=== PATIENT | male | born 1970 | race American Indian/Alaskan Native ===

== ENCOUNTER 2016-08-28 15:09 | Emergency (ER) | payer MEDICAID ==
[2016-08-28 15:14] VITALS: BMI 28.0
[2016-08-28 15:15] VITALS: TEMP 98.7; O2SAT 99
--- NOTE | 2016-08-28 15:31 | ED PDOC ---
Arrival/HPI - General Chief Complaint: Abdominal Pain Time Seen by Provider: 08/28/16 15:25 Historian: Patient - History of Present Illness Narrative History of Present Illness (Text): 08/28/16 15:29 A 45 year old male, whose past medical history includes alcohol abuse, hypertension, diabetes, sarcoidosis and COPD, presents to the emergency department complaining of right lower abdominal pain for the past 2 days. Patient reports radiating pain towards his back. Patient notes urinary frequency but denies any fever, chills, nausea, vomiting, chest pain, shortness of breath or any other complaints. Patient reports an unintentional 15 lbs weight loss over the past 2 months. PMD: Frank Mauro Time/Duration: Other (2 days) Symptom Course: Unchanged Quality: Other Context: Home Past Medical History - Provider Review Nursing Documentation Reviewed: Yes - Tetanus Immunization Tetanus Immunization: Unknown - Cardiac Hx Cardiac Disorders: Yes Hx Hypertension: Yes - Pulmonary Hx Respiratory Disorders: Yes (SARCOIDOSIS) Hx Bronchitis: Yes Hx Pneumonia: Yes Other/Comment: H/O OF BIOPSY OF LUNG - Endocrine/Metabolic Hx Endocrine Disorders: Yes Hx Diabetes Mellitus Type 2: Yes - Hematological/Oncological Hx Blood Disorders: No - Musculoskeletal/Rheumatological Hx Musculoskeletal Disorders: No - Gastrointestinal Hx Gastrointestinal Disorders: Yes Hx Gastroesophageal Reflux: Yes - Psychiatric Hx Psychophysiologic Disorder: Yes (SMOKES CIGARETTES/ETOH -DRINKS EVERY OTHER DAY VODKA) Hx Substance Use: No - Surgical History Hx Orthopedic Surgery: Yes (right wrist) - Anesthesia Hx Anesthesia Reactions: No Hx Malignant Hyperthermia: No - Suicidal Assessment Feels Threatened In Home Enviroment: No Family/Social History - Physician Review Nursing Documentation Reviewed: Yes Family/Social History: No Known Family HX Smoking Status: Current Some Days Smoker Hx Alcohol Use: Yes (last drink was 08/27/2016) Hx Substance Use: No Hx Substance Use Treatment: No Allergies/Home Meds Allergies/Adverse Reactions: Allergies No Known Allergies Allergy (Verified 10/09/12 14:36) Home Medications: Home Meds Medication Instructions Recorded Confirmed Metformin HCl 1,000 mg PO DAILY 10/09/12 08/28/16 Albuterol HFA [Ventolin HFA 90 2 puff IH Q4 PRN 03/24/16 08/28/16 mcg/actuation (8 g)] Cyclobenzaprine [Flexeril] 5 mg PO DAILY 03/24/16 08/28/16 Enalapril Maleate [Vasotec] 10 mg PO DAILY 03/24/16 08/28/16 Omeprazole 40 mg PO DAILY 03/24/16 08/28/16 predniSONE [Prednisone] 10 mg PO BID 03/24/16 08/28/16 Physical Exam - Physical Exam Narrative Physical Exam (Text): - Review of Systems Constitutional: (+) Weight loss absent: Fatigue, Fevers, Chills Eyes: Normal ENT: Normal Respiratory: Normal absent: SOB, Cough, Sputum Cardiovascular: Normal absent: Chest pain, Palpitations, Syncope Gastrointestinal: (+) RLQ pain radiating to back absent: Diarrhea, Nausea, Vomiting Genitourinary: (+) Urinary frequency absent: Dysuria, Hematuria Musculoskeletal: Normal. absent: Arthralgias, Neck Pain Skin: Normal Neurological: Normal absent: Focal Weakness Endocrine: Normal Hemo/Lymphatic: Normal Psychiatric: Normal - Physical exam Patient appears age appropriate, speaking full sentences without difficulty - Systems Exam Head: Present: Atraumatic, Normocephalic Pupils: Present: PERRL Extraocular Muscles: Present: EOMI Conjunctiva: Present: Normal Mouth: Present: Moist Mucous Membranes Neck: Present: Normal Range of Motion. No: MIDLINE TENDERNESS, Paraspinal Tenderness Respiratory/Chest: Present: Clear to Auscultation, Good Air Exchange. No: Respiratory Distress, Accessory Muscle Use, Tachypneic Cardiovascular: Present: Regular Rate and Rhythm, Normal S1, S2, Peripheral Pulses Present. No: Murmurs Abdomen: Present: Normal Bowel Sounds, No: Tenderness, Peritoneal Signs, Rebound, Guarding, Distention Back: Present: Normal Inspection. No: Midline Tenderness, Paraspinal Tenderness Upper Extremity: Present: Normal Inspection. No: Cyanosis, Edema Lower Extremity: Present: Normal Inspection. No: Edema Neurological: Present: GCS=15, Speech Normal, cranial nerves II through XII fully intact with no cerebellar abnormality, neuro-sensory fully intact. No focal neurological deficits. Skin: Present: Warm, Dry, Normal Color. No: Rashes Lymphatic: Present: OX3, NI, NC Psychiatric: Present: Alert, Oriented x 3, Normal Insight, Normal Concentration Vital Signs Reviewed: Yes Vital Signs Temp Pulse Resp BP Pulse Ox 08/28/16 17:10 89 18 125/71 99 08/28/16 15:14 98.7 F 99 H 16 128/76 99 Temperature: Afebrile Blood Pressure: Normal Pulse: Tachycardic Respiratory Rate: Normal Appearance: Positive for: Well-Appearing, Non-Toxic, Comfortable Pain Distress: None Mental Status: Positive for: Alert and Oriented X 3 Finger Stick Blood Glucose: 153 Medical Decision Making ED Course and Treatment: 08/28/16 15:29 Impression: A 45 year old male with right lower abdominal pain radiating to back. Patient notes urinary frequency and weight loss. Physical exam unremarkable. Differential Diagnosis included but are not limited to: Pancreatitis vs. Renal colic Plan: -- Abdomen and pelvis CT -- Labs -- Blood and Urine culture -- Urinalysis -- IV fluids and Toradol -- Reassess and disposition Prior Visits: Notes and results from previous visits were reviewed. Patient discharged on 2015 after being worked up for abdominal pain localized in RUQ. Imaging showed gallbladder sludge. Patient was recommended outpatient colonoscopy and cholecystectomy. Progress Notes: I have discussed with the patient the importance of following up with PMD as outpatient concerning his weight loss, explained it could be due to cancer or other deadly diseases. Patient expressed understanding. 08/28/16 18:44 Ice Sculptor : Leonard Harris PROCEDURE: CT Abdomen and Pelvis without intravenous contrast FINDINGS: LOWER THORAX: Unremarkable. LIVER: Hepatomegaly is noted. GALLBLADDER AND BILE DUCTS: Gallstones are seen without evidence of acute cholecystitis P PANCREAS: Unremarkable. No gross lesion or ductal dilatation. SPLEEN: Spleen is mildly enlarged. ADRENALS: Unremarkable. No mass. KIDNEYS AND URETERS: Unremarkable. No hydronephrosis. No solid mass. VASCULATURE: Unremarkable. No aortic aneurysm. BOWEL: Unremarkable. No obstruction. No gross mural thickening. APPENDIX: Unremarkable. Normal appendix. PERITONEUM: Unremarkable. No free fluid. No free air. LYMPH NODES: Unremarkable. No enlarged lymph nodes. BLADDER: [id number] urinary bladder wall thickening. REPRODUCTIVE: Mildly enlarged prostate contains multiple foci of calcification. Foci of calcification are also seen in the bilateral vas deferens. BONES: No acute fracture. OTHER FINDINGS: None. IMPRESSION: No evidence of nephrolithiasis or hydronephrosis. Bqow-bo-nebknbot hepatomegaly and mild splenomegaly of uncertain etiology. Gallstones without evidence of acute cholecystitis. Wqjh-zq-iklzuqki urinary bladder wall thickening. Mildly enlarged prostate. On reevaluation, patient reports that he feels much better and would like to be discharged home. Patient's repeat abdominal exam is soft, nontender, non distended with positive bowel sounds in all 4 quadrants and no peritoneal signs. Patient is tolerating PO without any difficulty. Pt states he understands to return to the ER right away for new or worsening symptoms or for inability to f/u with PMD or specialist as instructed. Patient states that he fully agrees with and understands discharge instructions. States that he agrees with the plan and disposition. Verbalized and repeated discharge instructions and plan. I have given the patient opportunity to ask any additional questions. - Lab Interpretations Lab Results: 08/28/16 14:00 08/28/16 14:00 Lab Results 08/28/16 17:45: Urine Color Yellow, Urine Appearance Clear, Urine pH 6.5, Ur Specific [place] 1.015, Urine Protein 30 H, Urine Glucose (UA) Negative, Urine Ketones Negative, Urine Blood Trace-lysed H, Urine Nitrate Negative, Urine Bilirubin Negative, Urine Urobilinogen 1.0 H, Ur Leukocyte Esterase Negative, Urine RBC 1 - 3, Urine WBC 0 - 2, Urine Bacteria Few 08/28/16 15:22: POC Glucose (mg/dL) 153 H 08/28/16 14:00: WBC 3.4 L, RBC 3.44 L, Hgb 9.6 L, Hct 29.9 L, MCV 86.9, MCH 27.9 , MCHC 32.1, RDW 16.1 H, Plt Count 161, MPV 11.0, Gran % 76.4 H, Lymph % (Auto) 13.0 L, [place] % (Auto) 9.1 H, Eos % (Auto) 0.9 L, Baso % (Auto) 0.6, Gran # 2.59 , Lymph # 0.4 L, [place] # 0.3, Eos # 0.0, Baso # 0.02, PT 13.5 H, INR 1.25 H, APTT 28.5, Sodium 136, Potassium 3.6, Chloride 94 L, Carbon Dioxide 27, Anion Gap 19, BUN 16, Creatinine 1.0, Est GFR ( Amer) > 60, Est GFR (Non-Af Amer) > 60, Random Glucose 136 H, Calcium 9.3, Total Bilirubin 1.2, AST 191 H, ALT 98 H, Alkaline Phosphatase 73, Total Protein 9.1 H, Albumin 4.3, Globulin 4.7, Albumin/Globulin Ratio 0.9 L, Lipase 115 I have reviewed the lab results: Yes - RAD Interpretation Radiology Orders: 08/28/16 15:37 ABD & PELVIS W/O PO OR IV CONT [CT] Stat - Medication Orders Current Medication Orders: Discontinued Medications Sodium Chloride (Sodium Chloride 0.9%) 1,000 mls @ 1,000 mls/hr IV .Q1H STA Stop: 08/28/16 16:38 Last Admin: 08/28/16 16:08 Dose: 1,000 MLS/HR eMAR Start Stop Document 08/28/16 16:08 EQ (Rec: 08/28/16 16:08 EQ [email or web address]) Intravenous Solution Start Date 08/28/16 Start Time 16:08 Ketorolac Tromethamine (Toradol) 15 mg IVP STAT STA Stop: 08/28/16 15:40 Last Admin: 08/28/16 16:08 Dose: 15 MG IVP Administration Document 08/28/16 16:08 EQ (Rec: 08/28/16 16:08 EQ [email or web address]) Charges for Administration # of IVP Administrations 1 - Scribe Statement The provider has reviewed the documentation as recorded by the Talon Quinteros Provider Scribe Attestation: All medical record entries made by the Scribe were at my direction and personally dictated by me. I have reviewed the chart and agree that the record accurately reflects my personal performance of the history, physical exam, medical decision making, and the department course for this patient. I have also personally directed, reviewed, and agree with the discharge instructions and disposition. Disposition/Present on Arrival - Present on Arrival Any Indicators Present on Arrival: No History of DVT/PE: No History of Uncontrolled Diabetes: No Urinary Catheter: No History of Decub. Ulcer: No History Surgical Site Infection Following: None - Disposition Have Diagnosis and Disposition been Completed?: Yes Diagnosis: Abdominal pain Disposition: HOME/ ROUTINE Disposition Time: 18:48 Patient Plan: Discharge Patient Problems: Current Active Problems Problem Status Diagnosed Pancytopenia Acute Thickening of wall of gallbladder Acute Condition: GOOD Discharge Instructions (ExitCare): Abdominal Pain (ED), Urinary Tract Infection in Men (ED) Additional Instructions: PLEASE RETURN TO THE EMERGENCY DEPARTMENT FOR NEW OR WORSENING SYMPTOMS. RETURN RIGHT AWAY IF YOU CANNOT FOLLOW UP WITH YOUR PRIMARY CARE DOCTOR, CLINIC, OR SPECIALIST IN 1-2 DAYS. Prescriptions: Nitrofurantoin Macrocrystals [Macrobid] 100 mg PO BID #14 cap Referrals: Frank Mauro APN [Primary Care Provider] - Follow up with primary Alec David MD [Medical Doctor] - Follow up with primary Chavo Duggan MD [Staff Provider] - Follow up with primary
[2016-08-28] MEDS ORDERED: Sodium Chloride 0.9% 1,000 ML IV STA (15:39)
[2016-08-28 16:15] LABS: ADD MANUAL DIFF? NO
[2016-08-28 16:26] LABS: BASO # 0.02 K/mm3 (0.0-2.0); BASO % 0.6 % (0.0-3.0); EOS % 0.9 % (1.5-5.0); GRAN # 2.59 (1.4-6.5); GRAN % 76.4 % (50.0-68.0); HEMATOCRIT 29.9 % (42.0-52.0); LYMPH # 0.4 (1.2-3.4); MEAN CELL VOLUME 86.9 fL (80.0-105.0); MEAN CORPUSCULAR HEMOGLOBIN 27.9 pg (25.0-35.0); MEAN CORPUSCULAR HGB CONC 32.1 g/dl (31.0-37.0); MONO # 0.3 (0.1-0.6); MONO % 9.1 % (1.0-6.0); PLATELET COUNT 161 10^3/uL (120.0-450.0); RED CELL DISTRIBUTION WIDTH 16.1 % (11.5-14.5); WHITE BLOOD COUNT 3.4 10^3/ul (4.5-11.0)
[2016-08-28 16:44] LABS: ALB/GLOB RATIO 0.9 (1.1-1.8); ALKALINE PHOSPHATASE 73 U/L (38-133); ALT/SGPT 98 U/L (7-56); AST/SGOT 191 U/L (15-59); BILIRUBIN,TOTAL 1.2 mg/dL (0.2-1.3); BLOOD UREA NITROGEN 16 mg/dL (7-21); CALCIUM 9.3 mg/dL (8.4-10.5); CARBON DIOXIDE 27 mmol/L (21-33); CHLORIDE 94 mmol/L (98-107); GFR AFRICAN-AMERICAN > 60; GLUCOSE,RANDOM 136 mg/dL (70-110); LIPASE 115 U/L (23-300); POTASSIUM 3.6 mmol/L (3.6-5.0); SODIUM 136 mmol/L (132-148); TOTAL PROTEIN 9.1 g/dL (5.8-8.3)
[2016-08-28 17:11] LABS: INR 1.25 (0.93-1.08); PARTIAL THROMBOPLASTIN TIME 28.5 Seconds (23.7-30.8)
[2016-08-28 17:19] VITALS: RESP 18
[2016-08-28 18:17] LABS: PH,URINE 6.5 (4.7-8.0); URINE BILIRUBIN NEGATIVE (NEGATIVE); URINE BLOOD TRACE-LYSED (NEGATIVE); URINE GLUCOSE (UA) NEGATIVE (NEGATIVE); URINE KETONE NEGATIVE (NEGATIVE); URINE LEUKOCYTE ESTERASE NEGATIVE Leu/uL (NEGATIVE); URINE PROTEIN 30 mg/dL (<30 mg/dL)
[2016-08-28 18:27] LABS: URINE APPEARANCE CLEAR (CLEAR); URINE COLOR YELLOW (YELLOW)
--- NOTE | 2016-08-28 18:40 | CT ---
PROCEDURE: CT Abdomen and Pelvis without intravenous contrast HISTORY: Renal colic COMPARISON: Comparison is made to the previous ultrasound dated 03/24/2016 TECHNIQUE: Axial and reformatted coronal and sagittal CT images of the abdomen and pelvis were obtained without IV or oral contrast administration.. Contrast Dose: 0 Radiation dose: Total exam DLP = 517.02 mGy-cm. This CT exam was performed using one or more of the following dose reduction techniques: Automated exposure control, adjustment of the mA and/or kV according to patient size, and/or use of iterative reconstruction technique. FINDINGS: LOWER THORAX: Unremarkable. LIVER: Hepatomegaly is noted. GALLBLADDER AND BILE DUCTS: Gallstones are seen without evidence of acute cholecystitis P PANCREAS: Unremarkable. No gross lesion or ductal dilatation. SPLEEN: Spleen is mildly enlarged. ADRENALS: Unremarkable. No mass. KIDNEYS AND URETERS: Unremarkable. No hydronephrosis. No solid mass. VASCULATURE: Unremarkable. No aortic aneurysm. BOWEL: Unremarkable. No obstruction. No gross mural thickening. APPENDIX: Unremarkable. Normal appendix. PERITONEUM: Unremarkable. No free fluid. No free air. LYMPH NODES: Unremarkable. No enlarged lymph nodes. BLADDER: Oepf-zd-losultqg urinary bladder wall thickening. REPRODUCTIVE: Mildly enlarged prostate contains multiple foci of calcification. Foci of calcification are also seen in the bilateral vas deferens. BONES: No acute fracture. OTHER FINDINGS: None. IMPRESSION: No evidence of nephrolithiasis or hydronephrosis. Tsiu-we-ukdrfrxq hepatomegaly and mild splenomegaly of uncertain etiology. Gallstones without evidence of acute cholecystitis. Spyy-bn-bysfphlu urinary bladder wall thickening. Mildly enlarged prostate.
[2016-08-28 18:42] LABS: URINE WBC 0 - 2 /hpf (0-6)
[2016-08-28 18:43] LABS: URINE BACTERIA FEW (NEG)
[2016-08-28 19:07] VITALS: BP 124/72; PULSE 90
== END 2016-08-28 19:06 | disposition home or self-care (01) ==
LOC: ED 15:09
DX: R10.9 Unspecified abdominal pain (principal); I10 Essential (primary) hypertension; E11.9 Type 2 diabetes mellitus without complications; K21.9 Gastro-esophageal reflux disease without esophagitis; Z72.0 Tobacco use
CPT/HCPCS: 74176; 80053; 81001; 82948; 83690; 85025; 85610; 85730; 87040; 87086; 96374; 99283; J1885; J7040

== ENCOUNTER 2016-10-11 04:23 | Emergency (ER) | payer MEDICAID ==
[2016-10-11 04:37] VITALS: BMI 28.7
[2016-10-11 04:38] VITALS: TEMP 98.4; O2SAT 100
[2016-10-11] MEDS ORDERED: Pantoprazole 40 MG in Sodium Chloride 0.9% 100 ML IV STA (04:52)
[2016-10-11] MEDS ORDERED: Sodium Chloride 0.9% 1,000 ML IV STA (04:52)
--- NOTE | 2016-10-11 04:57 | ED PDOC ---
Arrival/HPI - General Chief Complaint: Abdominal Pain Time Seen by Provider: 10/11/16 04:28 - History of Present Illness Narrative History of Present Illness (Text): 10/11/16 05:22 Patient is complaining of generalized abdominal pain for 5 days with no nausea no vomiting no diarrhea no fever no chills no shortness of breath no dysuria patient admits to drinking alcohol on a daily basis Time/Duration: < week Symptom Course: Improving Past Medical History - Provider Review Nursing Documentation Reviewed: Yes - Infectious Disease Hx of Infectious Diseases: None - Tetanus Immunization Tetanus Immunization: Unknown - Cardiac Hx Cardiac Disorders: Yes Hx Hypertension: Yes - Pulmonary Hx Respiratory Disorders: Yes (SARCOIDOSIS) Hx Bronchitis: Yes Hx Pneumonia: Yes Other/Comment: H/O OF BIOPSY OF LUNG - Endocrine/Metabolic Hx Endocrine Disorders: Yes Hx Diabetes Mellitus Type 2: Yes - Hematological/Oncological Hx Blood Disorders: No - Musculoskeletal/Rheumatological Hx Musculoskeletal Disorders: No - Gastrointestinal Hx Gastrointestinal Disorders: Yes Hx Gastritis: Yes Hx Gastroesophageal Reflux: Yes - Psychiatric Hx Psychophysiologic Disorder: Yes (SMOKES CIGARETTES/ETOH -DRINKS EVERY OTHER DAY VODKA) Hx Substance Use: No - Surgical History Hx Orthopedic Surgery: Yes (right wrist) - Anesthesia Hx Anesthesia: Yes Hx Anesthesia Reactions: No Hx Malignant Hyperthermia: No - Suicidal Assessment Feels Threatened In Home Enviroment: No Family/Social History - Physician Review Nursing Documentation Reviewed: Yes Family/Social History: No Known Family HX Smoking Status: Light Smoker < 10 Cigarettes Daily Hx Alcohol Use: Yes Frequency of alcohol use: Daily Hx Substance Use: No Hx Substance Use Treatment: No Allergies/Home Meds Allergies/Adverse Reactions: Allergies No Known Allergies Allergy (Verified 10/09/12 14:36) Home Medications: Home Meds Medication Instructions Recorded Confirmed Metformin HCl 1,000 mg PO DAILY 10/09/12 08/28/16 Albuterol HFA [Ventolin HFA 90 2 puff IH Q4 PRN 03/24/16 08/28/16 mcg/actuation (8 g)] Cyclobenzaprine [Flexeril] 5 mg PO DAILY 03/24/16 08/28/16 Enalapril Maleate [Vasotec] 10 mg PO DAILY 03/24/16 08/28/16 Omeprazole 40 mg PO DAILY 03/24/16 08/28/16 predniSONE [Prednisone] 10 mg PO BID 03/24/16 08/28/16 Review of Systems - Review of Systems Constitutional: Normal Eyes: Normal ENT: Normal Respiratory: Normal Cardiovascular: Normal Gastrointestinal: Abdominal Pain Genitourinary Male: Normal Musculoskeletal: Normal Skin: Normal Neurological: Normal Endocrine: Normal Hemo/Lymphatic: Normal Psychiatric: Normal Physical Exam Vital Signs Reviewed: Yes Vital Signs Temp Pulse Resp BP Pulse Ox 10/11/16 04:37 98.4 F 82 18 168/96 H 100 Temperature: Afebrile Blood Pressure: Normal Pulse: Regular Respiratory Rate: Normal Appearance: Positive for: Well-Appearing, Non-Toxic, Comfortable Pain Distress: None Mental Status: Positive for: Alert and Oriented X 3 - Systems Exam Head: Present: Atraumatic, Normocephalic Pupils: Present: PERRL Extroacular Muscles: Present: EOMI Conjunctiva: Present: Normal Mouth: Present: Moist Mucous Membranes Neck: Present: Normal Range of Motion Respiratory/Chest: Present: Clear to Auscultation, Good Air Exchange. No: Respiratory Distress, Accessory Muscle Use Cardiovascular: Present: Regular Rate and Rhythm, Normal S1, S2. No: Murmurs Abdomen: Present: Normal Bowel Sounds. No: Tenderness, Distention, Peritoneal Signs Back: Present: Normal Inspection Upper Extremity: Present: Normal Inspection. No: Cyanosis, Edema Lower Extremity: Present: Normal Inspection. No: Edema Neurological: Present: GCS=15, CN II-XII Intact, Speech Normal Skin: Present: Warm, Dry, Normal Color. No: Rashes Psychiatric: Present: Alert, Oriented x 3, Normal Insight, Normal Concentration Medical Decision Making Re-evaluation Time: :18 Reassessment Condition: Re-examined, Improved - Lab Interpretations Lab Results: 10/11/16 04:57 10/11/16 04:57 Lab Results 10/11/16 05:13: Urine Color Yellow, Urine Appearance Clear, Urine pH 7.0, Ur Specific [place] 1.025, Urine Protein 100 H, Urine Glucose (UA) Negative, Urine Ketones Negative, Urine Blood Small H, Urine Nitrate Negative, Urine Bilirubin Negative, Urine Urobilinogen 1.0 H, Ur Leukocyte Esterase Negative, Urine RBC 1 - 3, Urine WBC 0 - 2, Ur Epithelial Cells 0 - 2, Urine Bacteria Occ 10/11/16 04:57: Alcohol, Quantitative < 10 10/11/16 04:57: Sodium 138, Potassium 3.7, Chloride 99, Carbon Dioxide 30, Anion Gap 13, BUN 11, Creatinine 0.7, Est GFR ( Amer) > 60, Est GFR (Non- Af Amer) > 60, Random Glucose 102, Calcium 9.4, Total Bilirubin 1.0, AST 88 H, ALT 57 H, Alkaline Phosphatase 72, Lactate Dehydrogenase 486, Total Creatine Kinase 312 H, CK-MB (CK-2) 1.8, CK-MB (CK-2) % Cancelled, Troponin I < 0.01, Total Protein 9.3 H, Albumin 4.6, Globulin 4.6, Albumin/Globulin Ratio 1.0 L, Amylase 81, Lipase 160 10/11/16 04:57: PT 12.9 H, INR 1.19 H, APTT 29.6 10/11/16 04:57: WBC 3.3 L, RBC 3.48 L, Hgb 9.7 L, Hct 30.5 L, MCV 87.6, MCH 27.9 , MCHC 31.8, RDW 17.1 H, Plt Count 132, MPV 10.2, Gran % 70.1 H, Lymph % (Auto) 19.2 L, [place] % (Auto) 10.1 H, Eos % (Auto) 0.3 L, Baso % (Auto) 0.3, Gran # 2.30 , Lymph # 0.6 L, [place] # 0.3, Eos # 0.0, Baso # 0.01 - RAD Interpretation Radiology Orders: 10/11/16 04:52 ABD & PELVIS W/O PO OR IV CONT [CT] Stat - Medication Orders Current Medication Orders: Sodium Chloride (Sodium Chloride 0.9%) 1,000 mls @ 100 mls/hr IV .Q10H STA Stop: 10/11/16 14:51 Last Admin: 10/11/16 05:05 Dose: 100 mls/hr Discontinued Medications Pantoprazole Sodium 40 mg/ (Sodium Chloride) 100 mls @ 400 mls/hr IV STAT STA Stop: 10/11/16 05:06 Last Admin: 10/11/16 05:05 Dose: 400 mls/hr Ondansetron HCl (Zofran Inj) 4 mg IVP STAT STA Stop: 10/11/16 04:53 Last Admin: 10/11/16 05:05 Dose: 4 mg Pantoprazole Sodium (Protonix Inj) Confirm Administered Dose 40 mg .ROUTE .STK- MED ONE Stop: 10/11/16 05:03 Last Admin: 10/11/16 05:10 Dose: Disposition/Present on Arrival - Present on Arrival Any Indicators Present on Arrival: No History of DVT/PE: No History of Uncontrolled Diabetes: No Urinary Catheter: No History of Decub. Ulcer: No History Surgical Site Infection Following: None - Disposition Have Diagnosis and Disposition been Completed?: Yes Diagnosis: Gastritis Disposition: HOME/ ROUTINE Disposition Time: 06:19 Condition: GOOD Discharge Instructions (ExitCare): Gastritis (ED) Prescriptions: Sucralfate [Carafate] 1 gm PO QID #16 tablet
[2016-10-11 05:06] LABS: ADD MANUAL DIFF? NO
[2016-10-11 05:19] LABS: URINE BILIRUBIN NEGATIVE (NEGATIVE); URINE BLOOD SMALL (NEGATIVE); URINE GLUCOSE (UA) NEGATIVE (NEGATIVE); URINE KETONE NEGATIVE (NEGATIVE); URINE LEUKOCYTE ESTERASE NEGATIVE Leu/uL (NEGATIVE); URINE PROTEIN 100 mg/dL (<30 mg/dL)
[2016-10-11 05:20] LABS: ALKALINE PHOSPHATASE 72 U/L (38-133); ALT/SGPT 57 U/L (7-56); AMYLASE 81 U/L (35-125); AST/SGOT 88 U/L (15-59); BASO # 0.01 K/mm3 (0.0-2.0); BASO % 0.3 % (0.0-3.0); BLOOD UREA NITROGEN 11 mg/dL (7-21); CALCIUM 9.4 mg/dL (8.4-10.5); CARBON DIOXIDE 30 mmol/L (21-33); CHLORIDE 99 mmol/L (98-107); EOS % 0.3 % (1.5-5.0); GFR AFRICAN-AMERICAN > 60; GLUCOSE,RANDOM 102 mg/dL (70-110); GRAN % 70.1 % (50.0-68.0); HEMATOCRIT 30.5 % (42.0-52.0); LIPASE 160 U/L (23-300); LYMPH # 0.6 (1.2-3.4); LYMPH % 19.2 % (22.0-35.0); MEAN CELL VOLUME 87.6 fL (80.0-105.0); MEAN CORPUSCULAR HEMOGLOBIN 27.9 pg (25.0-35.0); MEAN CORPUSCULAR HGB CONC 31.8 g/dl (31.0-37.0); MEAN PLATELET VOLUME 10.2 fl (7.0-11.0); MONO # 0.3 (0.1-0.6); MONO % 10.1 % (1.0-6.0); PLATELET COUNT 132 10^3/uL (120.0-450.0); POTASSIUM 3.7 mmol/L (3.6-5.0); RED CELL DISTRIBUTION WIDTH 17.1 % (11.5-14.5); SODIUM 138 mmol/L (132-148); TOTAL PROTEIN 9.3 g/dL (5.8-8.3); WHITE BLOOD COUNT 3.3 10^3/ul (4.5-11.0)
[2016-10-11 05:22] LABS: INR 1.19 (0.93-1.08); PARTIAL THROMBOPLASTIN TIME 29.6 Seconds (23.7-30.8)
[2016-10-11 05:25] LABS: URINE APPEARANCE CLEAR (CLEAR); URINE COLOR YELLOW (YELLOW)
[2016-10-11 05:34] LABS: URINE EPITHELIAL CELLS 0 - 2 /hpf (0-5); URINE WBC 0 - 2 /hpf (0-6)
[2016-10-11 05:35] LABS: URINE BACTERIA OCC (NEG)
[2016-10-11 05:43] LABS: TROPONIN I < 0.01 ng/mL
--- NOTE | 2016-10-11 05:51 | CT ---
EXAM: CT Abdomen and Pelvis Without Intravenous Contrast CLINICAL HISTORY: 46 years old, male; Pain; Abdominal pain; Generalized; Additional info: Abd pain TECHNIQUE: Axial computed tomography images of the abdomen and pelvis without intravenous contrast. This CT exam was performed using one or more of the following dose reduction techniques: automated exposure control, adjustment of the mA and/or kV according to patient size, and/or use of iterative reconstruction technique. Coronal and sagittal reformatted images were created and reviewed. COMPARISON: CT - ABD PELVIS W/O PO OR IV CONT 08/28/2016 5:55:09 PM FINDINGS: Lower thorax: Mild atelectasis/scarring. ABDOMEN: Liver: Mild hepatomegaly. 4.0 x 1.2 x 3.6 cm partially calcified lesion within LEFT lobe, indeterminate by CT criteria, grossly stable. Gallbladder and bile ducts: Calcified gallstones. No ductal dilation. Pancreas: Unremarkable. No ductal dilation. Spleen: Mild splenomegaly. Adrenals: No mass. Kidneys and ureters: No renal calculi. No hydronephrosis. Stomach and bowel: No definite mural thickening. No obstruction. Appendix: Normal caliber. No inflammation. PELVIS: Bladder: Borderline bladder wall thickening, 4-5 mm. Incomplete distention, limiting evaluation. No stones. Reproductive: Unremarkable as visualized. ABDOMEN and PELVIS: Intraperitoneal space: No significant fluid collection. No free air. Bones/joints: Healed LEFT rib fracture. No acute fracture. Soft tissues: Unremarkable. Vasculature: Mild atherosclerotic disease. No abdominal aortic aneurysm. Lymph nodes: No pathologically enlarged lymph nodes. IMPRESSION: 1. Cholelithiasis. 2. Mild cystitis vs underdistention. Correlate with urinalysis. 3. Mild hepatosplenomegaly. 4. Liver lesion, indeterminate. Recommend nonemergent MRI. 5. Incidental/non-acute findings are described above.
[2016-10-11 06:50] VITALS: BP 158/95; PULSE 78; RESP 16
--- NOTE | 2016-10-11 15:33 | CARD ---
APPROVED REPORT EKG Measurement Heart [id number] <Conclusion> Normal sinus rhythm NSSTW changes Prolonged QTc.
== END 2016-10-11 07:08 | disposition home or self-care (01) ==
LOC: ED 04:23
DX: K29.70 Gastritis, unspecified, without bleeding (principal); I10 Essential (primary) hypertension; E11.9 Type 2 diabetes mellitus without complications; Z72.0 Tobacco use
CPT/HCPCS: 74176; 80053; 80320; 81001; 82150; 82550; 82553; 83615; 83690; 84484; 85025; 85610; 85730; 93005; 96374; 99283; C9113; J2405; J7040

== ENCOUNTER 2017-01-16 13:54 | Emergency (ER) | payer MEDICAID ==
[2017-01-16 14:00] VITALS: TEMP 98.3; BMI 30.1
--- NOTE | 2017-01-16 15:05 | ED PDOC ---
Arrival/HPI - General Chief Complaint: Back Pain Time Seen by Provider: 01/16/17 14:22 Historian: Patient - History of Present Illness Narrative History of Present Illness (Text): 01/16/17 14:25 A 46 year old male, whose past medical history includes sarcoidosis, hypertension, and diabetes, presents to the emergency department complaining of rib and back pain for 1 week. Patient reports a week ago he was drunk and fell onto his right side on the floor. Patient did not go to the hospital because pain began to resolve on its own. Recently, pain became worse instead. Patient notes experiencing slight shortness of breath (pain when breathing), vomiting for 2-3 days (approximately 8x per day), massive diarrhea (which has begun to resolve), and intermittent coughing, but denies of any fever, nausea, or any other complaints. No PMD Past Medical History - Provider Review Nursing Documentation Reviewed: Yes - Infectious Disease Hx of Infectious Diseases: None - Tetanus Immunization Tetanus Immunization: Unknown - Cardiac Hx Cardiac Disorders: Yes Hx Hypertension: Yes - Pulmonary Hx Respiratory Disorders: Yes (SARCOIDOSIS) Hx Bronchitis: Yes Hx Pneumonia: Yes Other/Comment: H/O OF BIOPSY OF LUNG - Neurological Hx Neurological Disorder: No - Endocrine/Metabolic Hx Endocrine Disorders: Yes Hx Diabetes Mellitus Type 2: Yes - Hematological/Oncological Hx Blood Disorders: No - Musculoskeletal/Rheumatological Hx Musculoskeletal Disorders: No Hx Back Pain: Yes - Gastrointestinal Hx Gastrointestinal Disorders: Yes Hx Gastritis: Yes Hx Gastroesophageal Reflux: Yes - Genitourinary/Gynecological Hx Prostate Problems: No - Psychiatric Hx Psychophysiologic Disorder: Yes (etoh) Hx Substance Use: No - Surgical History Hx Orthopedic Surgery: Yes (right wrist) - Anesthesia Hx Anesthesia: Yes Hx Anesthesia Reactions: No Hx Malignant Hyperthermia: No - Suicidal Assessment Feels Threatened In Home Enviroment: No Family/Social History - Physician Review Nursing Documentation Reviewed: Yes Family/Social History: No Known Family HX Smoking Status: Light Smoker < 10 Cigarettes Daily Hx Alcohol Use: Yes Frequency of alcohol use: Few days per week Hx Substance Use: No Hx Substance Use Treatment: No Allergies/Home Meds Allergies/Adverse Reactions: Allergies No Known Allergies Allergy (Verified 01/16/17 14:05) Home Medications: Home Meds Medication Instructions Recorded Confirmed Metformin HCl 1,000 mg PO DAILY 10/09/12 01/16/17 Albuterol HFA [Ventolin HFA 90 2 puff IH Q4 PRN 03/24/16 01/16/17 mcg/actuation (8 g)] Cyclobenzaprine [Flexeril] 5 mg PO DAILY 03/24/16 01/16/17 Enalapril Maleate [Vasotec] 10 mg PO DAILY 03/24/16 01/16/17 Review of Systems - Physician Review All systems were reviewed & negative as marked: Yes - Review of Systems Constitutional: absent: Fevers Respiratory: Cough (intermittent coughing ) Gastrointestinal: Diarrhea (diarrhea that has begun to resolve), Vomiting (2-3 days ). absent: Nausea Musculoskeletal: Back Pain (right-side with associated rib pain) Physical Exam Vital Signs Reviewed: Yes Vital Signs Temp Pulse Resp BP Pulse Ox 01/16/17 16:17 89 16 132/76 100 01/16/17 13:59 98.3 F 107 H 18 136/78 98 Temperature: Afebrile Blood Pressure: Normal Pulse: Regular Respiratory Rate: Normal Appearance: Positive for: Well-Appearing, Non-Toxic, Comfortable Pain Distress: None Mental Status: Positive for: Alert and Oriented X 3 - Systems Exam Head: Present: Atraumatic, Normocephalic Pupils: Present: PERRL Extroacular Muscles: Present: EOMI Conjunctiva: Present: Normal Mouth: Present: Moist Mucous Membranes Pharnyx: Present: Normal. No: ERYTHEMA, EXUDATE Neck: Present: Normal Range of Motion Respiratory/Chest: Present: Clear to Auscultation, Good Air Exchange. No: Respiratory Distress, Accessory Muscle Use Cardiovascular: Present: Regular Rate and Rhythm, Normal S1, S2. No: Murmurs Abdomen: No: Tenderness, Distention, Rebound, Guarding Back: Present: Paraspinal Tenderness (right upper back) Upper Extremity: Present: Tenderness (lateral right side rib tenderness) Lower Extremity: Present: Normal Inspection. No: Edema Neurological: Present: GCS=15, CN II-XII Intact, Speech Normal Skin: Present: Warm, Dry, Normal Color. No: Rashes Psychiatric: Present: Alert, Oriented x 3, Normal Insight, Normal Concentration Medical Decision Making ED Course and Treatment: 01/16/17 14:30 Impression: 46 year old male with rib and back pain. Physical exam shows lateral right side rib tenderness; upper back paraspinal tenderness; abdomen nontender. Differential Diagnosis included but are not limited to: Muscle Contusion vs Fracture Plan: -- Right Rib X-Ray -- Toradol -- Reassess and disposition Prior Visits: Notes and results from previous visits were reviewed. Patient was last seen in the emergency department on 10/11/2016 for generalized abdominal pain. Patient was discharged home. Progress Notes: Patient's Xray was negative and pain controlled with Toradol. Patient appears well hydrated and is not lightheaded when he stands. He is tolerating PO fluids in the ED. He also state that the vomiting and diarrhea has resolved since yesterday and he was mainly here for the rib pain. He will follow up with his PMD. Advised to return to the ED if symptoms worsen or any other concern. - RAD Interpretation Radiology Orders: 01/16/17 14:27 RIBS RIGHT & PA CHEST [RAD] Stat Negative Xray Staff Pharmacist Hospital: ED Physician - Medication Orders Current Medication Orders: Discontinued Medications Ketorolac Tromethamine (Toradol) 60 mg IM STAT STA Stop: 01/16/17 14:28 Last Admin: 01/16/17 15:02 Dose: 60 mg Re-Assess: QUINCY Pain Assessment Document 01/16/17 16:02 HI (Rec: 01/16/17 16:16 HI [id number]) Pain Reassessment Is this a pain reassessment? Yes Sleep Is patient sleeping during reassessment? Yes - Scribe Statement The provider has reviewed the documentation as recorded by the Stephaniibconnie Majano Provider Scribe Attestation: All medical record entries made by the Scribe were at my direction and personally dictated by me. I have reviewed the chart and agree that the record accurately reflects my personal performance of the history, physical exam, medical decision making, and the department course for this patient. I have also personally directed, reviewed, and agree with the discharge instructions and disposition. Disposition/Present on Arrival - Present on Arrival Any Indicators Present on Arrival: No History of DVT/PE: No History of Uncontrolled Diabetes: No Urinary Catheter: No History of Decub. Ulcer: No History Surgical Site Infection Following: None - Disposition Have Diagnosis and Disposition been Completed?: Yes Diagnosis: Rib contusion, Gastroenteritis Disposition: HOME/ ROUTINE Disposition Time: 16:15 Patient Plan: Discharge Condition: IMPROVED Discharge Instructions (ExitCare): Gastroenteritis (ED), Rib Contusion (ED) Additional Instructions: Mr Trace, thank you for letting us take care of you today. Your provider was Dr Lamas. You were treated for Rib/Back contusion. The emergency medical care you received today was directed at your acute symptoms. If you were prescribed any medication, please fill it and take as directed. It may take several days for your symptoms to resolve. Return to the Emergency Department if your symptoms worsen, do not improve, or if you have any other problems. Please contact your doctor or call one of the physicians/clinics you have been referred to that are listed on the Patient Visit Information form that is included in your discharge packet. Bring any paperwork you were given at discharge with you along with any medications you are taking to your follow up visit. Our treatment cannot replace ongoing medical care by a primary care provider (PCP) outside of the emergency department. Thank you for allowing the [facility] team to be part of your care today. If you had an X-Ray or CT scan: A Radiologist will review the ED reading if any change in treatment is needed we will contact you. If you had a blood, urine, or wound culture: It will take several days for the results, if any change in treatment is needed we will contact you. If you had an STI test: It will take 48 hours for the results. Please call after 1 week if you have not heard back. Prescriptions: Cyclobenzaprine [Cyclobenzaprine HCl] 10 mg PO Q8 #20 tab Ibuprofen [Motrin] 600 mg PO Q6 PRN #30 tab PRN Reason: Pain, Moderate (4-7) Referrals: [facility] at [facility] [place] [Outside] - Follow up with primary Forms: Zidisha (Pashto), WORK NOTE
--- NOTE | 2017-01-16 15:36 | RAD ---
PROCEDURE: Radiographs of the Chest and Right Ribs. HISTORY: fall r/o fx COMPARISON: None available. TECHNIQUE: Frontal radiograph of the chest and multiple oblique radiographs of the right ribs were obtained. FINDINGS: RIGHT RIBS: No fracture or focal lesion visualized. LUNGS: Clear. PLEURA: No pneumothorax or pleural fluid. CARDIOVASCULAR: Normal sized heart. No pulmonary vascular congestion. OTHER FINDINGS: None. IMPRESSION: Unremarkable radiographs of the chest and right ribs. No right rib fracture.
[2017-01-16 16:19] VITALS: BP 132/76; PULSE 89; RESP 16; O2SAT 100
== END 2017-01-16 16:19 | disposition home or self-care (01) ==
LOC: ED 13:54
DX: S20.211A Contusion of right front wall of thorax, initial encounter (principal); W01.0XXA Fall on same level from slipping, tripping and stumbling without subsequent striking against object, initial encounter; Y93.89 Activity, other specified; Y92.89 Other specified places as the place of occurrence of the external cause; K52.9 Noninfective gastroenteritis and colitis, unspecified
CPT/HCPCS: 71101; 96372; 99283; J1885